=== PATIENT | female | born 1950 | race Caucasian/White ===

== ENCOUNTER → 2023-10-18 06:31 | Day surgery (SDC) | payer MEDICARE, OTHER, SELFPAY | LOC: GI 06:31 | PROVIDERS: ATTENDING PHYSICIAN Internal Medicine; FAMILY PHYSICIAN Family Medicine | DX: Z12.11 Encounter for screening for malignant neoplasm of colon (principal); D12.2 Benign neoplasm of ascending colon; K63.89 Other specified diseases of intestine; K57.30 Diverticulosis of large intestine without perforation or abscess without bleeding; Z86.010 Personal history of colon polyps | CPT/HCPCS: 45380; 88305 ==

== ENCOUNTER 2024-02-02 06:23 | Day surgery (SDC) | payer MEDICARE, OTHER, SELFPAY ==
[2024-02-02 07:45] VITALS: BMI 29.7
[2024-02-02 08:00] VITALS: BMI 29.7
[2024-02-02 08:15] VITALS: BP 157/90
[2024-02-02 10:33] VITALS: BP 154/86
[2024-02-02 10:35] VITALS: BP 154/86
[2024-02-02 10:45] VITALS: BP 122/100; BP 160/88
[2024-02-02 10:49] VITALS: BP 160/88
[2024-02-02 10:57] VITALS: BP 177/90
== END 2024-02-02 11:14 | disposition home or self-care (01) ==
LOC: SDS 06:23
PROVIDERS: ATTENDING PHYSICIAN Internal Medicine Gastroenterology
DX: D37.4 Neoplasm of uncertain behavior of colon (principal); D12.2 Benign neoplasm of ascending colon; K63.89 Other specified diseases of intestine; K64.9 Unspecified hemorrhoids
CPT/HCPCS: 45390; 88305

== ENCOUNTER 2024-07-30 06:31 | Day surgery (SDC) | payer MEDICARE, OTHER, SELFPAY | END 2024-07-30 12:24 | disposition home or self-care (01) | LOC: GI 06:31 | PROVIDERS: ATTENDING PHYSICIAN Internal Medicine; FAMILY PHYSICIAN Family Medicine | DX: Z12.11 Encounter for screening for malignant neoplasm of colon (principal); D12.2 Benign neoplasm of ascending colon; D12.3 Benign neoplasm of transverse colon; K63.89 Other specified diseases of intestine; K57.30 Diverticulosis of large intestine without perforation or abscess without bleeding; Z86.0100 Personal history of colon polyps, unspecified | CPT/HCPCS: 45390; 45380; 88305 ==

== ENCOUNTER 2025-01-24 06:13 | Day surgery (SDC) | payer MEDICARE, OTHER, SELFPAY ==
[2025-01-24 09:52] VITALS: BMI 29.1
[2025-01-24 09:53] VITALS: BP 161/98
[2025-01-24 12:34] VITALS: BP 159/71
[2025-01-24 12:46] VITALS: BP 158/61
[2025-01-24 13:05] VITALS: BP 174/82
== END 2025-01-24 13:17 | disposition home or self-care (01) ==
LOC: SDS 06:13
PROVIDERS: ATTENDING PHYSICIAN Internal Medicine Gastroenterology
DX: D12.0 Benign neoplasm of cecum (principal); D12.2 Benign neoplasm of ascending colon; D12.3 Benign neoplasm of transverse colon; K57.30 Diverticulosis of large intestine without perforation or abscess without bleeding; K64.0 First degree hemorrhoids; Z98.890 Other specified postprocedural states; Z86.0101 Personal history of adenomatous and serrated colon polyps
CPT/HCPCS: 45390; 45385; 88305